=== PATIENT | male | born 1945 | race Caucasian/White ===

== ENCOUNTER 2017-04-14 09:18 | Emergency (ER) | payer OTHER, MEDICARE ==
[~2017-04-14 09:18] MED LIST: ADULT LOW DOSE81 M1 PO; AMLODIPINE BES2.5 MG PO; ATORVASTATIN CA20 MG PO; AZATHIOPRINE50 MG PO; Cipro PO; ENTYVIO300 MG IV; Flagyl PO; HYDROCHLOROTHIA25 MG PO; HYTRIN10 MG PO; Habitrol,Nicoderm CQ TD; LOTREL 10/41 CAPSULE PO; Norvasc PO; PENTASA250 MG; PENTASA500 MG PO; PREDNISONE10 M1 PO; PREDNISONE10 MG PO; PREDNISONE20 MG PO; Pentasa PO; Protonix PO; TYLENOL EXTRA500 MG PO; UNKNOWN BP MED; ZESTRIL40 MG PO; Zestril,Prinivil PO; predniSONE PO
[2017-04-14 09:21] VITALS: BP 137/75
[2017-04-14] MEDS ORDERED: PERCOCET 5/31 TABLET PO (12:16)
[2017-04-14] MEDS ORDERED: KEFLEX500 MG PO (12:16)
== END 2017-04-14 12:34 | disposition home or self-care (01) ==
LOC: EME 09:18
PROC: 3E0234Z Introduction of Serum, Toxoid and Vaccine into Muscle, Percutaneous Approach (ICD-10-PCS; principal; 2017-04-14)
PROC: 0HQGXZZ Repair Left Hand Skin, External Approach (ICD-10-PCS; principal; 2017-04-14)
DX: S61.211A Laceration without foreign body of left index finger without damage to nail, initial encounter (principal); S62.611A Displaced fracture of proximal phalanx of left index finger, initial encounter for closed fracture; W27.8XXA Contact with other nonpowered hand tool, initial encounter; K50.90 Crohn's disease, unspecified, without complications; Z23 Encounter for immunization; F17.200 Nicotine dependence, unspecified, uncomplicated
CPT/HCPCS: 73140; 99281; 99283